=== PATIENT | female | born 1950 | race African-American/Black ===

== ENCOUNTER 2023-10-12 14:31 | Outpatient (OUT) | payer MEDICARE, SELFPAY | END 2023-10-12 14:32 | disposition home or self-care (01) | LOC: PST 14:33 | PROVIDERS: Visit Provider Student in an Organized Health Care Education/Training Program | DX: Z01.818 Encounter for other preprocedural examination (principal); N18.6 End stage renal disease ==

== ENCOUNTER 2023-10-13 12:26 | Day surgery (SDC) | payer MEDICARE, SELFPAY ==
[2023-10-13] MEDS: BUPIVACAINE HCL 0.5% PF 50 MG/10 ML VIAL 4 ML INJ (14:12)
--- NOTE | 2023-10-13 17:12 | W.PM.OPNOTE ---
Surgery Operative Note Operative Note Procedure Date: 10/13/23 Time Out Performed: yes Pre-op Diagnosis: end stage renal disease Post-op Diagnosis: same as pre-op Procedures performed: Right IJ permacath removal Anesthesia: local Primary Surgeon: Heath Longoria Complications: None Estimated blood loss (mL): 0 Findings: Unremarkable operative course the permacath was removed its entirety Specimens: None Drains: None Indications for Procedures: The patient has a functional fistula and now she needs her permacath removed. Informed consent was obtained. Detailed description of Procedure: Patient was taken back to the operating room placed in supine position appropriate of the prominences were set neck and chest were prepped and draped in usual sterile surgical fashion. After timeout a safety pause local anesthesia was injected around the catheter access site in the tunnel. Sutures were cut and then blunt dissection was used to bluntly dissect the permacath from the surrounding tissue. The permacath was then removed in its entirety. Pressure was held and dressing was placed patient tolerated the procedure very well.
== END 2023-10-13 14:30 | disposition home or self-care (01) ==
PROVIDERS: PCP Family Medicine; Visit Provider Student in an Organized Health Care Education/Training Program
PROC: (CPT 36589; principal; 2023-10-13 13:30)
DX: Z45.2 Encounter for adjustment and management of vascular access device (principal); N18.6 End stage renal disease
CPT/HCPCS: 36589; J0665